=== PATIENT | male | born 1960 | race Caucasian/White ===

== ENCOUNTER 2018-12-07 08:32 | Outpatient (REF) | payer BC, SELFPAY ==
[2018-12-07 13:47] LABS: Mean Corp. HGB Concentration 34.1 g/dL (32.0-36.0); Mean Corpuscular Hemoglobin 30.1 pg (27.0-33.0); Mean Corpuscular Volume 88.4 fL (80-95); Mean Platelet Volume 9.7 fL (8.0-11.0); Platelet Count 206 x1000/uL (130-400); RBC 4.98 m/cumm (4.50-6.00); RBC Distribution Width 13.1 % (11.8-14.1); White Blood Cell Count 5.01 k/cumm (4.4-10.8)
[2018-12-07 15:11] LABS: ALT 73 U/L (12-78); AST 38 U/L (15-37); Albumin 4.1 g/dL (3.4-5.0); Alkaline Phosphatase 80 U/L (46-116); Anion Gap 6.6 mmol/L (3-11); BUN 21 mg/dL (7-18); Bilirubin, Total 0.7 mg/dL (0.2-1.0); CO2 31.4 mmol/L (21.0-32.0); CREATININE 1.24 mg/dL (0.70-1.30); Calcium 9.1 mg/dL (8.5-10.1); Chloride 104 mmol/L (98-107); Cholesterol 204 mg/dL (50-200); Estimated GFR 59.67 (mL/min/1.73m2); Glucose 135 mg/dL (70-100); HDL Cholesterol 43 mg/dL (40-60); LDL CHOLESTEROL 141 mg/dL (<100); Potassium 3.9 mmol/L (3.5-5.1); Sodium 142 mmol/L (136-145); Total Protein 7.7 g/dL (6.4-8.2); Triglyceride 110 mg/dL (30-150)
== END 2018-12-07 08:52 ==
LOC: NCHCN 08:32
PROVIDERS: PCP Family Medicine; Visit Provider Family Medicine
DX: E78.5 Hyperlipidemia, unspecified (principal); R73.01 Impaired fasting glucose; K76.0 Fatty (change of) liver, not elsewhere classified; I10 Essential (primary) hypertension
CPT/HCPCS: 80053; 80061; 83721; 85027

== ENCOUNTER 2020-01-04 17:19 | Outpatient (REF) | payer SELFPAY ==
[2020-01-04 15:29] LABS: HGB 15.3 g/dL (13.5-17.5); Mean Corp. HGB Concentration 34.8 g/dL (32.0-36.0); Mean Corpuscular Hemoglobin 30.6 pg (27.0-33.0); Mean Platelet Volume 9.2 fL (8.0-11.0); Platelet Count 219 x1000/uL (130-400); RBC Distribution Width 13.2 % (11.8-14.1); White Blood Cell Count 5.01 k/cumm (4.4-10.8)
[2020-01-04 15:46] LABS: ALT 44 U/L (16-63); AST 23 U/L (15-37); Albumin 4.2 g/dL (3.4-5.0); Alkaline Phosphatase 64 U/L (46-116); Anion Gap 8.4 mmol/L (3-11); BUN 17 mg/dL (7-18); Bilirubin, Total 0.9 mg/dL (0.2-1.0); CO2 27.6 mmol/L (21.0-32.0); CREATININE 1.14 mg/dL (0.70-1.30); Calcium 8.8 mg/dL (8.5-10.1); Chloride 105 mmol/L (98-107); Glucose 120 mg/dL (74-106); Potassium 3.7 mmol/L (3.5-5.1); Sodium 141 mmol/L (136-145); Total Protein 7.5 g/dL (6.4-8.2)
== END 2020-01-04 17:39 ==
LOC: NCHCN 17:19
PROVIDERS: PCP Family Medicine; Visit Provider Family Medicine
DX: K76.0 Fatty (change of) liver, not elsewhere classified (principal); I10 Essential (primary) hypertension; E29.1 Testicular hypofunction
CPT/HCPCS: 80053; 85027

== ENCOUNTER 2020-12-17 22:06 | Outpatient (REF) | payer OTHER, SELFPAY ==
[2020-12-17 19:12] LABS: HCT 48.4 % (40.0-50.0); HGB 16.7 g/dL (13.5-17.5); MCH 29.8 pg (27.0-33.0); MCHC 34.5 % (32.0-36.0); MCV 86.3 fL (80-95); MPV 9.2 fL (8.0-11.0); Platelet Count 225 10^3/uL (130-400); RBC 5.61 10^6/uL (4.36-5.78); RDW 12.3 % (11.8-14.1); RDW-SD 38.9 fL; WBC 6.53 10^3/uL (4.4-10.8)
[2020-12-17 19:24] LABS: ALT 49 U/L (16-63); AST 24 U/L (15-37); Albumin 4.5 g/dL (3.4-5.0); Alkaline Phosphatase 71 U/L (46-116); Anion Gap 10.2 mmol/L (3-11); BUN 19 mg/dL (7-18); Bilirubin, Total 0.4 mg/dL (0.2-1.0); CO2 29.8 mmol/L (21.0-32.0); CREATININE 1.1 mg/dL (0.70-1.30); Calcium 9.5 mg/dL (8.5-10.1); Chloride 104 mmol/L (98-107); Glucose 137 mg/dL (74-106); Potassium 3.6 mmol/L (3.5-5.1); Sodium 144 mmol/L (136-145); Total Protein 8.2 g/dL (6.4-8.2)
[2020-12-17 19:41] LABS: Hemoglobin A1C 6.1 % (<5.7)
== END 2020-12-17 22:07 | disposition home or self-care (01) ==
LOC: NCHCN 22:06
PROVIDERS: PCP Family Medicine; Visit Provider Family Medicine
DX: R73.03 Prediabetes (principal); K76.0 Fatty (change of) liver, not elsewhere classified; I10 Essential (primary) hypertension
CPT/HCPCS: 80053; 85027; 83036

== ENCOUNTER 2021-10-21 10:11 | Outpatient (REF) | payer OTHER, SELFPAY ==
[2021-10-21 15:23] LABS: HGB 16.2 g/dL (13.5-17.5); MCH 29.3 pg (27.0-33.0); MCHC 33.1 % (32.0-36.0); MCV 88.8 fL (80-95); MPV 9.1 fL (8.0-11.0); Platelet Count 216 10^3/uL (130-400); RBC 5.52 10^6/uL (4.36-5.78); RDW 12.6 % (11.8-14.1); RDW-SD 40.8 fL; WBC 5.89 10^3/uL (4.4-10.8)
[2021-10-21 16:05] LABS: ALT 27 U/L (16-63); AST 18 U/L (15-37); Albumin 4.5 g/dL (3.4-5.0); Alkaline Phosphatase 71 U/L (46-116); Anion Gap 9.4 mmol/L (3-11); BUN 16 mg/dL (7-18); Bilirubin, Total 0.8 mg/dL (0.2-1.0); CO2 28.6 mmol/L (21.0-32.0); CREATININE 1.2 mg/dL (0.70-1.30); Calcium 9.2 mg/dL (8.5-10.1); Chloride 104 mmol/L (98-107); Glucose 117 mg/dL (74-106); Sodium 142 mmol/L (136-145)
== END 2021-10-21 10:12 | disposition home or self-care (01) ==
LOC: NCHCN 10:11
PROVIDERS: PCP Family Medicine; Visit Provider Family Medicine
DX: K76.0 Fatty (change of) liver, not elsewhere classified (principal)
CPT/HCPCS: 80053; 85027